=== PATIENT | female | born 1990 | race Caucasian/White ===

== ENCOUNTER 2017-09-08 17:19 | Emergency (ER) | payer MEDICAID ==
[~2017-09-08] VITALS: Ht 157.5 cm; Wt 49.9 kg
[2017-09-08 17:19] VITALS: BP 110/73
== END 2017-09-08 17:52 | disposition home or self-care (01) ==
LOC: ER 17:20
DX: L02.415 Cutaneous abscess of right lower limb (principal); F99 Mental disorder, not otherwise specified; F17.200 Nicotine dependence, unspecified, uncomplicated; Z88.0 Allergy status to penicillin
CPT/HCPCS: 99283; A4606; Z7610

== ENCOUNTER 2017-11-08 21:40 | Emergency (ER) | payer MEDICAID ==
[~2017-11-08] VITALS: Ht 157.5 cm; Wt 43.1 kg
[2017-11-08 22:28] VITALS: BP 124/73
== END 2017-11-09 00:08 | disposition home or self-care (01) ==
LOC: ER 21:45
DX: B86 Scabies (principal); Z88.0 Allergy status to penicillin; F17.200 Nicotine dependence, unspecified, uncomplicated
CPT/HCPCS: A4606; Z7610

== ENCOUNTER 2017-11-11 00:04 | Emergency (ER) | payer MEDICAID ==
[~2017-11-11] VITALS: Ht 157.5 cm; Wt 43.1 kg
[2017-11-11 02:05] VITALS: BP 116/72
--- NOTE | 2017-11-11 02:05 | NUR ---
26 Y/O FEMALE PLACED IN BED 4 C/O ABSCSS AND SCABIES. PT REFUSES TO BE TREATED IN ER. PT SIGNED OUT AMA. ACI WITH RX GIVEN. PT LEFT.
== END 2017-11-11 02:05 | disposition left against medical advice (07) ==
LOC: ER 00:09
DX: L02.416 Cutaneous abscess of left lower limb (principal); F19.10 Other psychoactive substance abuse, uncomplicated; B86 Scabies; F17.200 Nicotine dependence, unspecified, uncomplicated; Z88.0 Allergy status to penicillin
CPT/HCPCS: 99283; A4606; Z7610